=== PATIENT | male | born 1950 | race Caucasian/White ===

== ENCOUNTER 2021-12-20 07:18 | Day surgery (SDC) | payer MEDICARE, BC, SELFPAY ==
[2021-12-20] VITALS (18 sets, daily range): BP systolic 104–156; BP diastolic 47–81; PULSE 60–81; RESP 12–18; TEMP 36.1–36.6; O2SAT 91–98; BMI 27.2
[2021-12-20] MEDS: SODIUM CHLORIDE 0.9 % (FLUSH) 10 ML SYRINGE IVF (07:45)
[2021-12-20] MEDS: LACTATED RINGERS 1000 ML 1,000 ML 100 ML IV ×2 (07:45→11:20)
[2021-12-20] MEDS: fentaNYL 100 MCG/2 ML inj IVP (08:25)
[2021-12-20] MEDS: MIDAZOLAM HCL 1 MG/ML inj IVP (08:25)
[2021-12-20] MEDS: CEFAZOLIN 2 GM INJ IVP (09:22)
--- NOTE | 2021-12-20 09:38 | SUR.PREOP ---
TIME?OUT:?0824 PT/CAITIE RN/ALAN ADAMS?VERIFICATION?OF?SURGICAL?SITE,?PROCEDURE,?AND?CONSENT OBTAINED?PRIOR?TO?INVASIVE?PROCEDURE.
--- NOTE | 2021-12-20 10:08 | W.PM.NB ---
Nerve Block Nerve Block Type of block requested by surgeon for post-operative analgesia: interscalene Side: right Time out performed: Yes Verification of patient name: Yes Verification of date of : Yes Site marking: site marked Name of person performing procedure: Nick Continuous monitoring 1st: Was continuous monitoring of O2 sat, B/P, court recording monitor, recorded every 15 minutes?: Yes Vital Signs: Last Vital Signs Temp 97.4 F L 12/20/21 08:09 Pulse 60 12/20/21 08:45 Resp 16 12/20/21 08:45 BP 120/74 12/20/21 08:45 Pulse Ox 97 12/20/21 08:45 Procedure Ultrasound guided. Images saved: Yes Versed IV (mg): 2 Fentanyl IV (mg): 0.1 Medications given in 5ml increments after negative aspiration: Ropivicaine %: 0.5 mL: 20 Needle gauge: 22 Decadron (mg): 10 Precedex (mg): 0.02 Patient tolerated procedure well: Yes
[2021-12-20] MEDS: SODIUM CHLORIDE IRRIG SOLUTION 3,000 ML, EPINEPHrine 1 MG IRRIGATION (10:29)
--- NOTE | 2021-12-20 12:40 | W.ANESCHARGE ---
Anesthesia Charges Start Date/Time Anesthesia Start Date: 12/20/21 Anesthesia Start Time: 08:58 Stop Date/Time Anesthesia Stop Date: 12/20/21 Anesthesia Stop Time: 12:34 Summary Emergency: No
--- NOTE | 2021-12-20 12:49 | PM.ORPRC ---
Procedure Note Procedure: PREOPERATIVE DIAGNOSES: 1. Right shoulder rotator cuff tear- full-thickness supraspinatus, infraspinatus, and subscapularis 2. Right shoulder long of the biceps partial-thickness tearing, high-grade 3. Right shoulder AC degenerative joint disease, moderate -severe 4. Right shoulder degenerative labral fraying and tearing 5. Right shoulder humeral head chondromalacia 6. Right shoulder adhesions supraspinatus and infraspinatus as well as subscapularis of rotator cuff tendons that tore and were retracted 7 Right shoulder subacromial impingement syndrome. POSTOPERATIVE DIAGNOSES: 1. Right shoulder rotator cuff tear- full-thickness supraspinatus, infraspinatus, and subscapularis 2. Right shoulder long of the biceps partial-thickness tearing, high-grade 3. Right shoulder AC degenerative joint disease, moderate -severe 4. Right shoulder degenerative labral fraying and tearing 5. Right shoulder humeral head chondromalacia 6. Right shoulder adhesions supraspinatus and infraspinatus as well as subscapularis of rotator cuff tendons that tore and were retracted 7 Right shoulder subacromial impingement syndrome. NAME OF OPERATION: 1. Right shoulder arthroscopic rotator cuff repair -full-thickness supraspinatus, infraspinatus, and subscapularis ( massive tear ) 2. Right shoulder arthroscopic distal clavicle excision 3. Right shoulder arthroscopic extensive glenohumeral debridement 4. Right shoulder arthroscopic long head of biceps tenotomy 5. Right shoulder arthroscopic lysis of adhesions -distinctly separate from the extensive glenohumeral debridement as the lysis of adhesions were in the subacromial space especially 6. Right shoulder arthroscopic bursectomy, subacromial decompression/partial acromioplasty. SURGEON: Santiago Nuñez MD PARKING ASSISTANT: Filipe SOTO. Of note, a skilled behavioral health assistant was critical for this case to aide in patient positioning, suture manipulation, arm positioning, instrument positioning, and closure. ANESTHESIA: General plus preoperative supraclavicular block. EBL: 50 mL IMPLANTS: Arthrex 4.75 mm BioComposite SwiveLock suture anchor (x3); 5.5 mm BioComposite corkscrew suture anchor ( x1); 5.5 mm BioComposite SwiveLock suture anchor ( x1) COMPLICATIONS: None evident INDICATIONS: The patient is a pleasant, 71-year-old male who has experienced right shoulder pain that has been increasing in recent time. Physical exam and imaging were consistent with a rotator cuff tear. Given their findings, as well as the weakness and pain, and inadequate response to nonoperative management, recommendation was made for surgery. FINDINGS: Exam under anesthesia revealed stable shoulder with excellent range of motion. The diagnostic arthroscopy revealed grade 2 chondromalacia humeral head with some loose chondral flaps. The Subscapularis tendon was torn full-thickness with significant retraction. Was also adhesed to the anterior capsular and rotator interval tissue. It was torn from its upper 1/2 with significant retraction. The long head of the biceps tendon was Torn in high-grade partial-thickness manner and dislocated out of the bicipital groove. The superior rotator cuff tendon was found to be torn full-thickness through the entire supraspinatus as well as majority of the anterior infraspinatus. The tissue was retracted back to the glenoid and had substantial adhesions particularly in the subacromial space area tracking back towards the scapular spine. The labrum was degeneratively frayed in the anterior and superior aspects. No loose bodies were identified within the pouch or subscapularis recess. PROCEDURE: Following a thorough discussion of risks, benefits, and alternatives, consent was obtained and the right shoulder was marked. The patient was brought to the operating room and placed supine on the operating table. Induction of anesthesia was completed after preoperative supraclavicular block was administered in preop holding. Appropriate time out was performed identifying proper patient, site, and procedure. 2 g IV Ancef was administered within 1 hour of incision preoperatively. The right upper extremity was prepped and draped in the appropriate sterile fashion using ChloraPrep prep. This was after the patient was positioned in the beach chair with their head in neutral alignment and all bony prominences well padded. The shoulder was insufflated with 20mL of normal saline via an 18g spinal needle from a posterior approach. An 11 blade skin incision allowed a blunt trochar to be inserted and diagnostic arthroscopy to be performed with the findings as noted above. An anterior portal was established with an outside in technique. This allowed the probe to be inserted and confirm the diagnostic arthroscopic findings. The shaver was then inserted and allowed debridement of The anterior and superior labrum. Additionally, debridement of the humeral head loose chondral flaps was performed with the arthroscopic shaver. Long head of the biceps tendon stump was also debrided with the shaver following biceps tenotomy which was done with a combination arthroscopic scissors and the shaver. Finally, the rotator cuff was also debrided with a shaver right on the deep surface of lesser tuberosity and greater tuberosity. Additionally, the long of the biceps was released from the bicipital tuberosity for arthroscopic tenotomy. The stump was debrided with a shaver. Following this, the upper border subscapularis was repaired after debriding the lesser tuberosity with the shaver and Franklin cautery. Subscapularis was captured in horizontal mattress fashion with a fiber tape suture. The tails were brought to a single anchor in the lesser tuberosity with excellent reapproximation of the subscap tendon and good excursion/tension. Thereafter, the subacromial space was entered. Here, a complete bursectomy and partial acromioplasty/subacromial decompression was performed with a combination of radiofrequency ablator, the shaver, and a 5.5 mm bur. Additionally, distal clavicle excision was performed with the bur. 8 mm of distal clavicle was resected based on the with of our bur. Further inspection of the supraspinatus and infraspinatus rotator cuff was performed. This identified the tear as noted above. The margins of the tear were debrided, and the greater tuberosity was debrided with a combination of the apollo cautery, shaver, and bur on reverse setting. After gentle decortication, significant lysis of adhesions was required to help mobilize the tissue. This was required on the deep surface of the glenohumeral joint but even more so in the subacromial space distinctly separate from the glenohumeral debridement noted above. This was done with a combination of Franklin cautery, arthroscopic shaver, and liberator elevator. This helped us mobilize the supraspinatus and infraspinatus. of note, greater than 1 hour was findings with Jamey of adhesions mobilizing the rotator cuff tissue to help with excursion and eventual repair. Again this was distinctly separate from the debridement noted above. If this does not fall Under its own surgical billing category, it is absolutely worthy of an modifier 22 for added difficulty code due to the extensive lysis required. It was also identified that majority the tendon had fallen posteriorly as well as medially. There was a marginal convergence that was necessary with the split directed towards the posterior medial aspect of the tendon junction of supra and infra. After identifying this, 5 separate margin convergence sutures were placed to help reapproximate this tissue. A posterior medial anchor was placed and the sutures passed with a scorpion. These were done with the SwiveLock suture anchor in the tails were eventually brought to lateral row anchors for security. Then for the anterior medial row anchor, a corkscrew was utilized. After performing the 5 marginal convergence sutures, these sutures were also passed to help not only with marginal convergence but also with reapproximation of to the anterior medial portion of the tuberosity. Finally, another generally marginal convergence suture was utilized with the fiber link in a luggage tag fashion. These anterior medial row anchor stitch tails were then brought to a lateral row anchor along with 1 of the tapes from the posterior medial anchor. This allowed excellent footprint compression against the greater tuberosity. 95+% of the humeral head was covered with the rotator cuff repair. The far anterior aspect still had a small hole that was not repairable due to tension. Prior to anchor explosives truck driver removal, the eyelet sutures were tugged on for each anchor and found that the anchor had excellent stability within the bone. The shoulder was placed through range of motion and found to be stable. The rotator cuff was re-probed and found to be stable. Instruments were removed. Excess fluid was drained, closure performed with 4-0 Monocryl and Steri-Strips. Dressings were applied. Sling was applied. The patient was awoken from anesthesia and transferred to the PACU in stable condition. A skilled behavioral health assistant was critical for this case to aid in patient positioning, limb positioning, skill to manipulate arthroscopic instruments and camera, suture management, patient safety, and closure. PLAN: 1. Elbow, forearm, wrist and digit range of motion as tolerated. 2. Encouraged ice. 3. Percocet for pain as needed. 4. Sling at all times except for ROM and showering. 5. Follow up with PA visit in 1-2 weeks for wound check. Initiate physical therapy following that visit for passive range of motion. Initiate active assisted range of motion at 4-6 weeks. He had a massive tear and therefore active range of motion should not be started until after 8-10 weeks postop. Strengthening not until and closer to 12-14 weeks postop. May do pendulums now.
--- NOTE | 2021-12-20 14:07 | W.ANESCHARGE ---
Anesthesia Charges Start Date/Time Anesthesia Start Date: 12/20/21 Anesthesia Start Time: 08:58 Stop Date/Time Anesthesia Stop Date: 12/20/21 Anesthesia Stop Time: 12:34 Summary Emergency: No
[2021-12-20] MEDS: OxyCODONE/APAP 5-325 TABLET 1 TAB PO (15:01)
== END 2021-12-20 15:39 | disposition home or self-care (01) ==
PROVIDERS: PCP Family Medicine; Visit Provider Orthopaedic Surgery Sports Medicine
PROC: (CPT 29805; principal; 2021-12-20 08:30)
DX: M75.121 Complete rotator cuff tear or rupture of right shoulder, not specified as traumatic (principal); S46.111A Strain of muscle, fascia and tendon of long head of biceps, right arm, initial encounter; M19.011 Primary osteoarthritis, right shoulder; M94.211 Chondromalacia, right shoulder; M75.41 Impingement syndrome of right shoulder; M75.01 Adhesive capsulitis of right shoulder; S43.431A Superior glenoid labrum lesion of right shoulder, initial encounter
CPT/HCPCS: 29827; 29828; 29826; 29824; 29823; 29825; 01630; 64415; 76942; A9270; C1713; J0171; J0330; J0690; J1100; J2250; J2370; J2405; J2704; J2795; J3010; J7120

== ENCOUNTER 2021-12-21 19:58 | Emergency (ER) | payer MEDICARE, BC, SELFPAY ==
[2021-12-21 20:09] VITALS: BP 190/89; PULSE 79; RESP 16; TEMP 36.6; O2SAT 98; BMI 26.1
--- NOTE | 2021-12-21 20:40 | CRLHL7_ITS ---
For Patients: As a result of the Century Cures Act, medical imaging exams and procedure reports are released immediately into your electronic medical record. You may view this report before your referring provider. If you have questions, please contact your health care provider. Indication: Stomach pain. Technique: AP portable erect chest. Comparison: June 17, 2015. Findings: Heart is normal in size. The lungs are clear. No infiltrate, pleural effusion, or pneumothorax is identified. Impression: No acute cardiopulmonary process Dictated by Jessica Reveles MD @ 12/21/2021 9:25:04 PM (Electronically Signed)
--- NOTE | 2021-12-21 20:56 | ED_ITS ---
HPI - General Adult General Date Seen: 12/21/21 Chief complaint: Unspecified Complaint, Adult Stated complaint: STOMACH PAIN,POST-SURGERY Time Seen by Provider: 12/21/21 20:22 History of Present Illness HPI narrative: Patient is a 71-year-old male who had rotator cuff surgery yesterday. He says surgery went fine, the shoulder is feeling good. He has been taking Percocet since surgery. Says that he was told the surgery took about an hour or longer than planned, and he has had some throat irritation from the ET tube, that seems to cause some coughing. He has had some diffuse sharp pain in his chest when he coughs, though he has not had shortness of breath. The only time he has chest pain is when he coughs. is coughing up some sputum. He also says he has had some diffuse abdominal pain any feels that his abdomen is distended. He has not had any nausea or vomiting, he is eating well. He has not had a bowel movement since surgery. He stepped on a scale today and he was up 3 lb from before the surgery, and this concerned him. He says he felt like he had to have a bowel movement earlier today so he sat down to try, but he developed abdominal pain when he did so he aborted that attempt. He says he called the [facility], but he did not seem terribly concerned, simply told him that if he had more problems he should come to the emergency department. He presents here with concerns about his abdominal pain and chest pain. Related Data Home Medications Medication Instructions Recorded Confirmed aspirin 81 mg tablet,delayed 81 mg PO DAILY 12/19/21 12/20/21 release atorvastatin 40 mg tablet 40 mg PO HS 12/19/21 12/20/21 metformin 500 mg tablet,extended 2,000 mg PO DAILY 12/19/21 12/20/21 release 24 hr Previous Rx's Medication Instructions Recorded oxycodone-acetaminophen 5 mg-325 1 tab PO Q4-8H PRN #25 tab 12/20/21 mg tablet (Percocet) Allergies Allergy/AdvReac Type Severity Reaction Status Date / Time No Known Allergies Allergy Verified 12/20/21 08:15 Review of Systems Status of ROS: Reports: 10 or more systems reviewed and unremarkable except as noted in History and below [facility] Medical History Accidental hypothermia Accidental overdose CAD (coronary artery disease) Depression Erectile dysfunction Excessive daytime sleepiness History of gout Hyperlipidemia Obstructive sleep apnea syndrome Positive colorectal cancer screening using DNA-based stool test Shoulder injury Tobacco dependence syndrome Type 2 diabetes mellitus Surgical History Status post angioplasty with stent Social History Smoking Status: Current every day smoker What tobacco products do you use: cigarettes Smoking packs per day: 1 Smoking cigarettes per day: 20.0 Years smoked: 9 Smoking pack-years: 9.00 How often do you have a drink containing alcohol: 2-3 times a week Alcohol type: beer How many standard drinks containing alcohol do you have on a typical day: 1 or 2 How often do you have six or more drinks on one occasion: Never AUDIT-C Alcohol total score: 3 Non-prescribed substance use: denies use Caffeine: Yes Exam Narrative: Exam Narrative: Vital signs as noted above. In general, an alert, well-appearing patient. Head: Normocephalic, atraumatic. Eyes: Pupils are equal reactive. Extraocular movements are full. Conjunctivae are normal. ENT: Mucous membranes are moist. Throat is normal. Neck: Supple without lymphadenopathy. No stridor. Heart: Regular rate and rhythm. No murmur or rub. Lungs: Clear bilaterally. No increased work of breathing, crackles or wheezes. Abdomen: Soft and nontender, mildly distended, bowel sounds present. No rebound guarding or rigidity. Extremities: Right shoulder is in an immobilizer. Left radial pulse intact. No lower extremity edema or calf tenderness. Neurologic: Patient is alert and oriented to person and place. Speech is fluent. Face is symmetric. Moves all extremities equally. Affect: Normal. Skin: Warm and dry. Well perfused. Const: Vital Signs, click to edit/add: Vital Signs - 24 hr 12/21/21 20:09 12/21/21 21:23 Temperature 97.8 F 97.8 F Pulse Rate 79 Pulse Rate [Left P ulse Oximeter] 79 Respiratory Rate 16 16 Blood Pressure 190/89 H Blood Pressure [Le ft Upper Arm] 190/89 H Pulse Oximetry 98 Documenting provider has reviewed patient's vital signs: yes Course Course Hospital Course: Overall, patient is well-appearing. He is breathing without difficulty. His abdominal exam is benign. I do think his 3 lb of weight gain since surgery is likely related to intraoperative fluids and the fact that he has not had a bowel movement since before his surgery. He is taking narcotic pain medications, he is taking senna which he says has worked for him in the past when he is taking narcotics, but he has not had a bowel movement despite feeling that he needs to. I do think it would be reasonable to work on getting him to have a bowel movement prior to embarking on a large workup for abdominal pain. He is comfortable with this as well. With regard to his chest pain and cough, I did do a chest x-ray here. By my review, chest x-ray shows an elevated right hemidiaphragm which is new compared to 2015, otherwise negative. Final radiology report is read as negative. Patient is very eager to go home, in fact was very frustrated that we did not discharge him medially after his chest x- ray. I have reviewed results with him, encouraged him to try an enema at home, use MiraLax, and then return if he is not having improvement with his symptoms. Follow up with Orthopedics as planned for his rotator cuff surgery. If he has any new symptoms such as shortness of breath, fever, vomiting, etcetera return at any time to the emergency department. Given that his chest pain is present only when he coughs, I do not think this is cardiac and did not pursue any kind of chest pain evaluation. Vital Signs Vital signs: Initial Vital Signs Temperature 97.8 F 12/21/21 20:09 Temperature Source Temporal Artery Scan 12/21/21 20:09 Pulse Rate 79 12/21/21 20:09 Pulse Rhythm 12/21/21 20:09 Pulse Strength 0+ Absent 12/21/21 20:09 Respiratory Rate 16 12/21/21 20:09 Blood Pressure 190/89 H 12/21/21 20:09 Blood Pressure Mean 122 12/21/21 20:09 Blood Pressure Position Sitting 12/21/21 20:09 Pulse Oximetry 98 12/21/21 20:09 Oxygen Delivery Method 12/21/21 20:09 Vital Signs Temperature 97.8 F 12/21/21 20:09 Pulse Rate 79 06/30/22 20:09 Respiratory Rate 16 12/21/21 20:09 Blood Pressure 190/89 H 12/21/21 20:09 Pulse Oximetry 98 12/21/21 20:09 Temperature 97.8 F 12/21/21 21:23 Pulse Rate 79 12/21/21 21:23 Respiratory Rate 16 12/21/21 21:23 Blood Pressure 190/89 H 12/21/21 21:23 Pulse Oximetry 98 12/21/21 20:09 Discharge Plan Discharge Clinical Impression: Cough, Abdominal pain Patient Disposition: Home, Self-Care Condition: Stable Instructions: Abdominal Pain (ED) Additional Instructions: Try Fleet's enema as discussed. Add MiraLax to help with constipation. If you develop new symptoms such as vomiting, fever, shortness of breath, persistent chest pain, return for re-evaluation. Otherwise follow up with Orthopedics as planned. Prescriptions: No Action atorvastatin 40 mg tablet 40 mg PO HS 0RF aspirin 81 mg tablet,delayed release (DR/EC) 81 mg PO DAILY 0RF metformin 500 mg tablet extended release 24 hr 2,000 mg PO DAILY 0RF oxycodone-acetaminophen [Percocet] 5-325 mg tablet 1 tab PO Q4-8H PRN (Reason: pain) Qty: 25 0RF Follow Up/Referrals: Nilson Sorto MD [Primary Care Provider] - Stand Alone Forms: [employer] Info Instructions
[2021-12-21 21:23] VITALS: BP 190/89; PULSE 79; RESP 16; TEMP 36.6
== END 2021-12-21 21:42 | disposition home or self-care (01) ==
PROVIDERS: Emergency Provider Emergency Medicine; PCP Family Medicine
DX: R05.9 Cough, unspecified (principal); R10.9 Unspecified abdominal pain; Z98.890 Other specified postprocedural states
CPT/HCPCS: 71045; 99283; 99284

== ENCOUNTER 2022-05-25 08:30 | Outpatient (RCR) | payer MEDICARE, BC, SELFPAY ==
--- NOTE | 2022-01-03 15:13 | PT.OPEX ---
PT Center Outpatient Eval PT [facility] Outpatient Eval Start: 01/03/22 13:28 Freq: Status: Active Protocol: Document 01/03/22 13:29 ACW (Rec: 01/03/22 13:30 ACW [id number]) E-Signed By Rebecca Roldan, PT, ATC Physical Therapy Outpatient Evaluation Insurance Information Insurance Name [employer] Medical Diagnosis s/p right RC repair Treating Diagnosis decreased right shoulder ROM and strength Referring MD Nuñez Subjective Subjective pt came in not wearing his sling today - which is 1 wk status post surgery. The doctor wanted him in his sling for 6 wks. pt is doing a lot with his arm throughout the day Pain Comments 0-08/31 Date of Last Physician Visit 12/28/21 Date of Next Physician Visit 12/20/21 Current Work Status Precision Inspector Precautions Treatment Precautions/Contraindications surgeon wants PROM for at least the first 4 wks. AAROM can be started 4-6 wks no AROM until after 8 weeks because the tear was massive strengthening may start at 12- 14 wks Weight Bearing Status Full Weight Bearing Therapy Limitations/Systems Review Not Limited Objective Range of Motion PROM right shoulder : flex= 100, abduction 107 neck ROM is full for flex and ext. sidebending and rotation bilaterally are limited Palpation op sites appear healthy and healing well just generalized thickness in anterior shoulder Posture protracted shoulders, dropped chest Assessment Assessment/Impression pt is a 71 yo male who had arthroscopic surgery to repair 3 of his 4 RC tendons ( supraspinatus, subscapularis and infraspinatus) 1 wk ago. He isn't having much for pain even though he isn't wearing his sling, and hasn't been. 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 He is taking advil once in awhile. He doesn't ice. He isn't sleeping well but hasn't for years due to sleep apnea. The original injury happened July/August of this year, but he wanted to play golf in [place] in October and this summer so he put off surgery as long as he could. pt will benefit from skilled PT for pt education, self care, TE and MT Plan of Care Rehabilitation Potential Fair Physical Therapy Goals 1. pt will be competent and compliant with home ex and icing and not using his right arm 2. in 6 wks pt will have full PROM with 2/10 max right shoulder discomfort 3. in 10 wks pt will have 75% full AROM with 3/10 max pain 4. in 14 wks pt will have strengthening program 5. in 16 wks pt will be able to scratch the top of his head with his right hand, put a coffee cup up into the microwave, lift 5# out in front of himself with 3/10 max shoulder pain Coordination/Communication With Referral Source Treatment Plan/Direct Interventions Manual Therapy,Self-Care/Home Management,Therapeutic Exercises Frequency/Duration 1 time every 1-2 wks as needed to follow protocol and achieve goals Patient Will Be Discharged From Therapy Independently Progressing Evaluation Billing Complexity High Certification Information Initial Certification Date 01/03/22
== END 2022-05-28 12:11 | disposition home or self-care (01) ==
PROVIDERS: PCP Family Medicine; Visit Provider Physician Assistant Surgical
DX: M25.511 Pain in right shoulder (principal); Z51.89 Encounter for other specified aftercare
CPT/HCPCS: 97110; 97140; 97163; 97535

== ENCOUNTER 2022-05-28 11:23 | Emergency (ER) | payer MEDICARE, BC, SELFPAY ==
[2022-05-28 11:47] VITALS: BP 187/93; PULSE 70; RESP 18; TEMP 36.7; O2SAT 97; BMI 24.4
== END 2022-05-28 15:45 | disposition left against medical advice (07) ==
PROVIDERS: Emergency Provider Emergency Medicine Emergency Medical Services; PCP Family Medicine
DX: Z53.21 Procedure and treatment not carried out due to patient leaving prior to being seen by health care provider (principal)

== ENCOUNTER 2022-07-06 07:30 | Outpatient (CLI) | payer MEDICARE, BC, SELFPAY ==
[2022-07-06 10:19] LABS: Albumin* 4.5 g/dL (3.3-5.0); Chloride* 106 mmol/L (96-114)
[2022-07-06 10:20] LABS: Potassium* 4.8 mmol/L (3.6-5.1); Sodium* 140 mmol/L (135-149)
[2022-07-06 10:22] LABS: Aspartate Amino Transferase* 26 U/L (12-35); Bilirubin Total* 0.7 mg/dL (0.1-1.5); Blood Urea Nitrogen* 16 mg/dL (7-30); Carbon Dioxide* 25 mmol/L (20-32); Cholesterol* 152 mg/dL (90-199); Creatinine* 0.8 mg/dL (0.5-1.5); Estimated Glomerular Filt Rate 96 ml/min; Total Protein* 7.2 g/dL (6.0-8.3)
[2022-07-06 10:23] LABS: Alanine Aminotransferase* 24 U/L (4-50); Alkaline Phosphatase* 104 U/L (40-150); Calcium* 9.6 mg/dL (8.4-10.6); Glucose* 137 mg/dL (60-115); HDL Cholesterol* 54 mg/dL (>=40); LDL Cholesterol Calculated 78 mg/dL (<100); Triglycerides* 99 mg/dL (40-149)
[2022-07-06 10:35] LABS: Creatinine Urine 47.5 mg/dL
[2022-07-06 10:40] LABS: Microalbumin Creatinine Ratio 40 mg/g (0-30); Microalbumin Urine 2 mg/dL
[2022-07-06 10:53] LABS: PSA Screen* 0.98 ng/mL (0.10-4.00)
== END 2022-07-06 07:31 | disposition home or self-care (01) ==
PROVIDERS: PCP Family Medicine; Visit Provider Family Medicine
DX: Z00.00 Encounter for general adult medical examination without abnormal findings (principal); E11.9 Type 2 diabetes mellitus without complications; E78.5 Hyperlipidemia, unspecified; B37.2 Candidiasis of skin and nail; Z12.5 Encounter for screening for malignant neoplasm of prostate
CPT/HCPCS: 80053; 80061; 82043; 82570; 84153

== ENCOUNTER 2022-07-13 07:08 | Outpatient (CLI) | payer MEDICARE, BC, SELFPAY ==
--- NOTE | 2022-07-13 07:15 | CRLHL7_ITS ---
For Patients: As a result of the Century Cures Act, medical imaging exams and procedure reports are released immediately into your electronic medical record. You may view this report before your referring provider. If you have questions, please contact your health care provider. Examination: US abdominal aorta Indication: Abdominal aortic aneurysm screening. Technique: Mishra scale and color Doppler images of the aorta and common iliac arteries are obtained. Comparison: None Findings: Proximal aorta: 3.0 x 3.1 cm Mid aorta: 2.1 x 2.5 cm Distal aorta: 2.3 x 2.5 cm Right common iliac artery: 1.1 x 1.5 cm Left common iliac artery: 1.2 x 1.5 cm Recommended imaging interval for ectatic aorta: 2.5-2.9 cm: 5 years 3.0-3.4 cm: 3 years 3.5-3.9 cm: 2 years 4.0-4.4 cm: 1 year 4.5-4.9 cm: 6 months Iliac artery aneurysm: Defined as 1.5 times normal diameter or greater than 2.5 cm. <3.0 cm rarely rupture and expands slowly 3.0-3.5 cm: Follow-up cross-sectional imaging in 6 months. If stable, annual follow-up. <3.5 cm need treatment or even closer follow-up. 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 Follow-up 3 years recommended. Dictated by Barrett Ferrer MD @ 07/13/2022 9:23:46 AM (Electronically Signed)
== END 2022-07-13 07:09 | disposition home or self-care (01) ==
PROVIDERS: PCP Family Medicine; Visit Provider Family Medicine
DX: Z13.6 Encounter for screening for cardiovascular disorders (principal); I77.89 Other specified disorders of arteries and arterioles
CPT/HCPCS: 76706

== ENCOUNTER 2022-09-27 07:11 | Emergency (ER) | payer MEDICARE, BC, SELFPAY ==
[2022-09-27 07:27] VITALS: BP 152/90; PULSE 67; RESP 16; TEMP 36.3; O2SAT 96; BMI 25.1
--- NOTE | 2022-09-27 08:01 | ED.NAVMDI ---
HPI - Nausea/Vomiting/Diarrhea General Chief complaint: Nausea/Vomiting Stated complaint: Throwing up and stomach issues Time Seen by Provider: 09/27/22 07:53 History of Present Illness HPI Narrative: Pt is a 71 year old gentleman who presents with nausea, vomiting and diarrhea. Pt has been sick with these symptoms off and on for the past week. No blood in his stool or vomiting. Pt has no significant abd pain. Pt states that he just returned from [place]. No fever or chills. No chest pain or shortness of breath. Pt has not felt like he has been nearing syncope. Pt unable to control symptoms at home. No sick contacts. No rash or other related symptoms. Related Data Home Medications Medication Instructions Recorded Confirmed aspirin 81 mg tablet,delayed 81 mg PO DAILY 12/19/21 08/07/22 release Previous Rx's Medication Instructions Recorded atorvastatin 40 mg tablet 40 mg PO HS #90 tabs 07/11/22 metformin 500 mg tablet,extended 2,000 mg PO DAILY #360 tabs 07/11/22 release 24 hr nystatin 100,000 unit/gram topical 1 applic topical TID #30 grams 07/11/22 cream rosuvastatin 20 mg tablet 20 mg PO QDAY #90 tabs 07/26/22 Allergies Allergy/AdvReac Type Severity Reaction Status Date / Time No Known Allergies Allergy Verified 09/27/22 07:27 Review of Systems Status of ROS: Reports: 10 or more systems reviewed and unremarkable except as noted in History and below [facility] Medical History Accidental hypothermia ?T68.XXXA - Hypothermia, initial encounter (ICD-10) Accidental overdose ?T50.901A - Poisoning by unspecified drugs, medicaments and biological substances, accidental (unintentional), initial encounter (ICD-10) CAD (coronary artery disease) ?I25.10 - Atherosclerotic heart disease of [place] coronary artery without angina pectoris (ICD-10) Cervical disc disease ?M50.90 - Cervical disc disorder, unspecified, unspecified cervical region (ICD-10) Depression ?F32.A - Depression, unspecified (ICD-10) Erectile dysfunction ?N52.9 - Male erectile dysfunction, unspecified (ICD-10) Excessive daytime sleepiness ?G47.19 - Other hypersomnia (ICD-10) History of gout ?Z87.39 - Personal history of other diseases of the musculoskeletal system and connective tissue (ICD-10) Hyperlipidemia ?E78.5 - Hyperlipidemia, unspecified (ICD-10) Obstructive sleep apnea syndrome ?G47.33 - Obstructive sleep apnea (adult) (pediatric) (ICD-10) Positive colorectal cancer screening using DNA-based stool test ?R19.5 - Other fecal abnormalities (ICD-10) Shoulder injury ?S49.90XA - Unspecified injury of shoulder and upper arm, unspecified arm, initial encounter (ICD-10) Tobacco dependence syndrome ?F17.200 - Nicotine dependence, unspecified, uncomplicated (ICD-10) Type 2 diabetes mellitus ?E11.9 - Type 2 diabetes mellitus without complications (ICD-10) Surgical History Status post angioplasty with stent ?Z95.820 - Peripheral vascular angioplasty status with implants and grafts (ICD-10) Status post arthroscopy of right shoulder (12/20/21) ?Z98.890 - Other specified postprocedural states (ICD-10) Family History Father Diabetes Social History Smoking Status: Never smoker How often do you have a drink containing alcohol: 2-3 times a week Alcohol type: beer How many standard drinks containing alcohol do you have on a typical day: 1 or 2 How often do you have six or more drinks on one occasion: Never AUDIT-C Alcohol total score: 3 Non-prescribed substance use: denies use Caffeine: Yes Little interest or pleasure in doing things: not at all Feeling down, depressed, or hopeless: not at all Exam Narrative: Exam Narrative: EXAM GENERAL: Patient appears comfortable and well. EYES: No scleral icterus. LYMPH: No supraclavicular or cervical lymphadenopathy. SKIN: Visible skin seen during exam normal or with benign process only. EXT: No dependent lower extremity pedal edema. HEART: Regular rate and rhythm with no murmurs, rubs, or gallops. LUNGS: Clear to auscultation bilaterally with no crackles or wheezes. ABD: Soft, non tender, non distended. PSYCH: Good eye contact, speech is not pressured. Const: Vital Signs, click to edit/add: Vital Signs - 24 hr 09/27/22 07:27 09/27/22 08:25 Temperature 97.4 F L Pulse Rate 64 Pulse Rate [Pulse Oximeter] 67 Respiratory Rate 16 Blood Pressure [Ri ght Upper Arm] 152/90 H Pulse Oximetry 96 90 Oxygen Delivery Me thod Room Air Course Course Hospital Course: Pt seen and examined. 1 Liter normal saline and 4 mg of IV Zofran given. CBC, CMP, Amylase, Troponin ordered. Reevaluation(s) Reevaluation #1: Pt feeling better after normal saline. Vital Signs Vital signs: Initial Vital Signs Temperature 97.4 F L 09/27/22 07:27 Temperature Source Temporal Artery Scan 09/27/22 07:27 Pulse Rate 67 09/27/22 07:27 Respiratory Rate 16 09/27/22 07:27 Blood Pressure 152/90 H 09/27/22 07:27 Blood Pressure Mean 110 09/27/22 07:27 Blood Pressure Position Sitting 09/27/22 07:27 Pulse Oximetry 96 09/27/22 07:27 Oxygen Delivery Method Room Air 09/27/22 07:27 Vital Signs Temperature 97.4 F L 09/27/22 07:27 Pulse Rate 67 09/27/22 07:27 Respiratory Rate 16 09/27/22 07:27 Blood Pressure 152/90 H 09/27/22 07:27 Pulse Oximetry 96 09/27/22 07:27 Oxygen Delivery Method Room Air 09/27/22 07:27 Temperature 97.4 F L 09/27/22 07:27 Pulse Rate 64 09/27/22 08:25 Respiratory Rate 16 09/27/22 07:27 Blood Pressure 152/90 H 09/27/22 07:27 Pulse Oximetry 90 09/27/22 08:25 Oxygen Delivery Method Room Air 09/27/22 07:27 MDM - Nausea/Vomiting/Diarrhea MDM Narrative Medical decision making narrative: Pt is a 71 year old gentleman who presents with acute gastroenteritis. Pt treated with normal saline and zofran. Feeling better. Labs, physical exam and vital signs are reassuring. Pt will be treated symptomatically with outpt follow up. Differential Diagnosis Differential diagnosis: Likely traveler's diarrhea, food poisoning, gastroenteritis, drug-induced nausea and vomiting and dehydration Lab Data Labs: Lab Results 09/27/22 Range/Units 07:50 WBC 9.73 (4.50-11.00) K/uL RBC 4.70 (4.30-5.90) m/uL Hgb 14.0 (13.5-17.5) gm/dL Hct 40.3 (37.0-53.0) % MCV 86 (80-100) fL MCH 30 (26-34) pg MCHC 35 (32-36) gm/dL RDW Coeff of Sheng 11.9 (11.5-15.5) % Plt Count 186 (140-440) K/uL Neut % (Auto) 80.4 H (42.0-72.0) % Lymph % (Auto) 9.1 L (20-44) % [place] % (Auto) 6.5 (0.0-11.0) % Eos % (Auto) 3.6 (0.0-7.0) % Baso % (Auto) 0.2 (0.0-3.0) % Neut # (Auto) 7.80 H (1.7-7.0) K/uL Lymph # (Auto) 0.90 (0.90-2.90) K/uL [place] # (Auto) 0.60 (0.00-0.90) K/UL Eos # (Auto) 0.35 (0.00-0.50) K/uL Baso # (Auto) 0.02 (0.00-0.30) K/uL Sodium 138 (135-149) mmol/L Potassium 3.7 (3.6-5.1) mmol/L Chloride 108 (96-114) mmol/L Carbon Dioxide 23 (20-32) mmol/L BUN 15 (7-30) mg/dL Creatinine 0.8 (0.5-1.5) mg/dL Estimated Creat Clear 74.25 Estimated GFR 96 ml/min Glucose 171 H (60-115) mg/dL Calcium 8.8 (8.4-10.6) mg/dL Total Bilirubin 0.7 (0.1-1.5) mg/dL AST 27 (12-35) U/L ALT 25 (4-50) U/L Alkaline Phosphatase 107 (40-150) U/L Troponin I < 0.01 L (0.01-0.04) ng/mL Total Protein 7.0 (6.0-8.3) g/dL Albumin 4.1 (3.3-5.0) g/dL Amylase 57 (18-89) U/L Discharge Plan Discharge Clinical Impression: Gastroenteritis Patient Disposition: Home, Self-Care Condition: Stable Instructions: Gastroenteritis (ED) Activity Level: No Restrictions Discharge Diet: Regular Prescriptions: No Action atorvastatin 40 mg tablet 40 mg PO HS Qty: 90 3RF metformin 500 mg tablet extended release 24 hr 2,000 mg PO DAILY Qty: 360 3RF nystatin 100,000 unit/gram cream 1 applic topical TID Qty: 30 1RF Rx Instructions: apply to affected area x 1-2 weeks and continue for 2 days after rash resolves aspirin 81 mg tablet,delayed release (DR/EC) 81 mg PO DAILY rosuvastatin 20 mg tablet 20 mg PO QDAY Qty: 90 3RF Follow Up/Referrals: Nilson Sorto MD [Primary Care Provider] - Stand Alone Forms: [facility] [employer] Info Instructions
[2022-09-27 08:10] LABS: Basophils Absolute Auto 0.02 K/uL (0.00-0.30); Basophils Percent Auto 0.2 % (0.0-3.0); Eosinophils Absolute Auto 0.35 K/uL (0.00-0.50); Eosinophils Percent Auto 3.6 % (0.0-7.0); Hematocrit 40.3 % (37.0-53.0); Immature Granulocytes Abs Auto 0.02 K/uL (0.00-0.30); Immature Granulocytes Pct Auto 0.2 %; Lymphocytes Percent Auto 9.1 % (20-44); Mean Corpuscular HGB Conc 35 gm/dL (32-36); Mean Corpuscular Hemoglobin 30 pg (26-34); Mean Corpuscular Volume 86 fL (80-100); Monocytes Percent Auto 6.5 % (0.0-11.0); Neutrophils Percent Auto 80.4 % (42.0-72.0); Platelet Count* 186 K/uL (140-440); RDW Coefficient of Variation % 11.9 % (11.5-15.5); White Blood Count* 9.73 K/uL (4.50-11.00)
[2022-09-27 08:15] VITALS: BP 142/79; PULSE 60; RESP 18; O2SAT 97
[2022-09-27 08:15] LABS: Slide Review Reflex No
[2022-09-27] MEDS: ONDANSETRON 2 MG/ML inj 4 MG IVP (08:19)
[2022-09-27] MEDS: 0.9 % SODIUM CHLORIDE 1000 ml 1,000 ML IV (08:19)
[2022-09-27 08:24] LABS: Albumin* 4.1 g/dL (3.3-5.0); Chloride* 108 mmol/L (96-114); Sodium* 138 mmol/L (135-149)
[2022-09-27 08:25] VITALS: PULSE 64; O2SAT 90
[2022-09-27 08:25] LABS: Potassium* 3.7 mmol/L (3.6-5.1)
[2022-09-27 08:27] LABS: Alkaline Phosphatase* 107 U/L (40-150); Amylase* 57 U/L (18-89); Aspartate Amino Transferase* 27 U/L (12-35); Bilirubin Total* 0.7 mg/dL (0.1-1.5); Blood Urea Nitrogen* 15 mg/dL (7-30); Carbon Dioxide* 23 mmol/L (20-32); Creatinine* 0.8 mg/dL (0.5-1.5); Est. Creatinine Clearance* 74.25; Estimated Glomerular Filt Rate 96 ml/min; Glucose* 171 mg/dL (60-115)
[2022-09-27 08:28] LABS: Alanine Aminotransferase* 25 U/L (4-50); Calcium* 8.8 mg/dL (8.4-10.6)
[2022-09-27 08:39] LABS: Troponin I* < 0.01 ng/mL (0.01-0.04)
[2022-09-27 09:00] VITALS: BP 157/79; PULSE 64; RESP 18; O2SAT 97
== END 2022-09-27 09:34 | disposition home or self-care (01) ==
LOC: ED 09:26
PROVIDERS: Emergency Provider Internal Medicine; PCP Family Medicine
DX: K52.9 Noninfective gastroenteritis and colitis, unspecified (principal)
CPT/HCPCS: 36415; 80053; 82150; 84484; 85025; 93005; 96374; 99283; 99284; J2405; J7030

== ENCOUNTER 2022-12-11 07:31 | Outpatient (CLI) | payer MEDICARE, BC, SELFPAY | END 2022-12-11 07:32 | disposition home or self-care (01) | LOC: NFLDREF 18:06 | PROVIDERS: PCP Family Medicine; Referring Provider Family Medicine; Visit Provider Family Medicine | DX: E11.9 Type 2 diabetes mellitus without complications (principal) | CPT/HCPCS: 82043; 82570 ==

== ENCOUNTER 2023-05-08 07:39 | Outpatient (CLI) | payer MEDICARE, BC, SELFPAY | END 2023-05-08 07:40 | disposition home or self-care (01) | LOC: NFLDREF 05-10 08:39 | PROVIDERS: PCP Family Medicine; Referring Provider Family Medicine; Visit Provider Family Medicine | DX: Z00.00 Encounter for general adult medical examination without abnormal findings (principal); E11.9 Type 2 diabetes mellitus without complications; E78.5 Hyperlipidemia, unspecified | CPT/HCPCS: 80053; 80061; 82043; 82570 ==

== ENCOUNTER 2023-05-29 07:02 | Outpatient (CLI) | payer MEDICARE, BC, SELFPAY ==
--- NOTE | 2023-05-29 07:15 | CRLHL7_ITS ---
For Patients: As a result of the Century Cures Act, medical imaging exams and procedure reports are released immediately into your electronic medical record. You may view this report before your referring provider. If you have questions, please contact your health care provider. Indication: Right foot drop. Technique: Multiplanar, multisequence MRI of the lumbar spine was performed without intravenous contrast. Comparison: None relevant available. Findings: There are 5 lumbar type vertebral segments identified. The vertebral body heights are maintained without evidence of fracture. There is no discrete T1 hypointense marrow infiltrating process. The conus medullaris terminates at L1, normal. Redundancy to the cauda equina nerve roots above the L4-5 disc level. T12-L1: No spinal canal or neural foraminal stenosis. L1-2: Disc degeneration. Disc bulge with superimposed small right subarticular disc protrusion. Protrusion slightly abuts the descending right L2 nerve. Mild overall spinal canal narrowing. Moderate right neural foraminal narrowing. Left neural foramina is patent. Mild facet arthropathy. L2-3: Moderate disc degeneration, with moderate opposing endplate degenerative edema. Disc bulge with facet hypertrophy resulting in mild spinal canal narrowing. Moderate left and mild right neural foraminal narrowing. Moderate facet arthropathy. L3-4: Disc degeneration, with moderate opposing endplate degenerative edema. Disc bulge with superimposed central disc protrusion resulting in moderate spinal canal narrowing. Moderate to severe left and moderate right neural foraminal narrowing. Moderate facet arthropathy. L4-5: Trace anterolisthesis. Disc bulge with facet hypertrophy and ligamentum flavum thickening results in severe spinal canal stenosis. Moderate neural foraminal stenosis. Severe facet arthropathy. L5-S1: Disc degeneration. No spinal canal narrowing. Moderate severe neural foraminal stenosis secondary to disc bulge and facet hypertrophy. Moderate facet arthropathy. Mild sacroiliac joint osteoarthritis. Impression: 1. At L3-4, moderate spinal canal with moderate to severe left and moderate right neural foraminal stenosis. 2. At L4-5, severe spinal canal with moderate neural foraminal stenosis. 3. At L5-S1, moderately severe neural foraminal stenosis. 4. Mild to moderate spondylosis at the remaining lumbar levels. Dictated by Reuben Funes MD @ 05/30/2023 1:54:47 PM (Electronically Signed)
== END 2023-05-29 07:03 | disposition home or self-care (01) ==
PROVIDERS: PCP Family Medicine; Visit Provider Family Medicine
DX: M21.371 Foot drop, right foot (principal); M48.061 Spinal stenosis, lumbar region without neurogenic claudication; M47.896 Other spondylosis, lumbar region; M54.16 Radiculopathy, lumbar region
CPT/HCPCS: 72148

== ENCOUNTER 2023-10-08 19:24 | Outpatient (CLI) | payer MEDICARE, BC, SELFPAY ==
--- OUTSIDE RECORDS SUMMARY | 2023-10-08 19:26 | XMS_ITS | Continuity of Care Document ---
Author Name Unknown Organization [facility] Address [address] [place] [address] Phone Care Team Providers Care Supply Chain Program Manager Name Role Phone Eligio Lerner MD Unavailable Unavailable Procedures Procedure Date Office/Outpatient Visit,[facility] 2023 Advance Directives Directive Yes / No Effective Date File Name No Information Encounters Encounter Description Practice Location Reason(s) For Visit Diagnoses Date Provider Providers Copied on Encounter Office/Outpat ient Visit,[place] [facility], [address], [place], [place], [id number], [place] tel:[phone] [facility] Spinal stenosis, lumbar region with neurogenic claudication Spondylolist hesis, lumbar region Yann Del Valle. [facility], [address] [place] [address], [facility] [address], [place], [place], [id number], [place]. tel:[phone] Referring Provider: Chalino Davis [facility] ER Physician-D o Not Fax, [place], [address]. tel:[phone] Family History Family Member Type Diagnosis Age At Onset No Information Payers Payer name Insurance type Covered green [place] ID Adore ma([place] [id number] Medicare [facility] [id number] 1 Social History Type Description Quantity Date Captured Comments Sex Male Smoking Status No Information Vital Signs Date / Time: Height Weight BMI Pulse Rate Blood Pressure Temperature Respiratory Rate Body Surface Area Head Circumference Head Circ. Percentile Wt./Dl. Percentile BMI percentile Pulse Ox Inhaled Ox 3:44 PM 70.50 in 83.915 kg (185.00 lbs) 26.1 7 kg/m eter (2) Chief Complaint And Reason For Visit No Information Reason For Referral Reason For Referral No Information History Of Present Illness Encounter Date Complaint History Of Prese nt Illness No Information Functional Status Date Functional Assessmen t No Information Instructions Date Instruction Additional Infor mation No Information Assessments Type Assessment Date No Information Patient Care Teams Name Effective Dates (start - stop) Status Members No Information
--- NOTE | 2023-10-30 11:31 | W.PM.SLEEP ---
Sleep Study Details Details Interpreting Provider: Chantelle Date of Sleep Study: 10/08/23 Sleep Study Details: STUDY TYPE:? Home unattended ? BMI:? Not recorded ORDERING PROVIDER:? Chantelle INDICATION:? Concerns about sleep apnea ? SLEEP SUMMARY:? 271 minutes monitored RESPIRATORY SUMMARY:? AHI 16.6 per CMS guideline, 18.4 per rule 1A guidelines. Mild apnea nonsupine, severe apnea prone low oxygen 77 1% of study oxygen less than 90% Snoring 58.5% PERIODIC LIMB MOVEMENTS OF SLEEP:? Not recorded CARDIAC:? Range 56-88, mean 69.5 IMPRESSION:? Moderate obstructive sleep apnea with prone position dependency RECOMMENDATION: Treatment options include CPAP either in-lab or AutoSet, dental appliance and/or airway expansion surgery.
== END 2023-10-08 19:25 | disposition home or self-care (01) ==
LOC: SLEEP 19:25
PROVIDERS: PCP Family Medicine; Visit Provider Otolaryngology
DX: G47.33 Obstructive sleep apnea (adult) (pediatric) (principal)
CPT/HCPCS: 95806

== ENCOUNTER 2024-05-13 07:50 | Outpatient (CLI) | payer MEDICARE, BC, SELFPAY ==
--- OUTSIDE RECORDS SUMMARY | 2024-05-16 18:57 | XMS_ITS | Clinical Summary ---
Author Organization [facility] Address [place], [place] [address] Care Team Providers Care Rail Bonder Name Role Phone Nilson Sorto MD Primary Care Provider [phone] Allergies No known active allergies Medications Medication Sig Dispensed Refills Start Date End Date Status metformin HCl (METFORMIN ORAL) Take by mouth. Active aspirin (ASPIR-81 ORAL) Take by mouth. Active Encounters Date Type Department Care Team Description 02/15/2024 10:30 AM CDT - 02/15/2024 11:49 AM CDT Emergency [facility] [address] [place] [address] Odell Haider MD Subconjunctival hemorrhage of left eye (Primary Dx); Eye contusion, left, initial encounter Discharge Disposition: Home Self Care 02/15/2024 Travel from Last 3 Months Social History Tobacco Use Types Packs/Day Years Used Date Smoking Tobacco: Never Assessed Sex and Gender Information Value Date Recorded Sex Assigned at Male 02/15/2024 10:36 AM CDT Gender Identity Male 02/15/2024 10:36 AM CDT Sexual Orientation Straight 02/15/2024 10 :36 AM CDT Last Filed Vital Signs Vital Sign Reading Time Taken Comments Blood Pressure 151/88 02/15/2024 11:30 AM CDT Pulse 73 02/15/2024 11:30 AM CDT Temperature 36.7 C (98.1 F) 02/15/2024 10:36 AM CDT Respiratory Rate 18 02/15/2024 10:36 AM CDT Oxygen Saturation 98% 02/15/2024 11:30 AM CDT Inhaled Oxygen Concentration - - Weight 83.9 kg (185 lb) 02/15/2024 10:36 AM CDT Height 180.3 cm (5' 11) 02/15/2024 10:36 AM CDT Body Mass Index 25.8 02/15/2024 10:36 AM CDT Plan of Treatment Not on file Care Teams Rail Bonder Relationship Specialty Start Date End Date Nilson Sorto MD [address] [place] [address] PCP - General Family Practice 02/15/24
--- OUTSIDE RECORDS SUMMARY | 2024-05-16 18:57 | XMS_ITS | Continuity of Care Document ---
Author Organization [facility] Address [address] [place] [address] Phone Care Team Providers Care Fire Engineer Name Role Phone Eligio Lerner MD Unavailable Unavailable Procedures Procedure Date Office/Outpatient Visit,[facility] [place] Advance Directives Directive Yes / No Effective Date File Name No Information Encounters Encounter Description Practice Location Reason(s) For Visit Diagnoses Date Provider Providers Copied on Encounter Office/Outpat ient Visit,[facility], [address], [place], [place], [id number], [place] tel:[phone] [facility] Spinal stenosis, lumbar region with neurogenic claudication Spondylolist hesis, lumbar region Yann Del Valle. [facility], [address] [place] [address], [facility] [address], [place], [place], [id number], [place]. tel:[phone] [facility] Physician-D o Not Fax, [place], [address]. tel:[phone] Family History Family Member Type Diagnosis Age At Onset No Information Payers Payer name Insurance type Covered democrat ID Authorpatricia alyciapatric(s) [place] [id number] Medicare [facility] [id number] 1 Social History Type Description Quantity Date [...]
== END 2024-05-13 07:51 | disposition home or self-care (01) ==
LOC: NFLDREF 05-16 18:56
PROVIDERS: PCP Family Medicine; Referring Provider Family Medicine; Visit Provider Family Medicine
DX: Z00.00 Encounter for general adult medical examination without abnormal findings (principal); E11.9 Type 2 diabetes mellitus without complications; E78.5 Hyperlipidemia, unspecified; I25.10 Atherosclerotic heart disease of native coronary artery without angina pectoris; N52.9 Male erectile dysfunction, unspecified
CPT/HCPCS: 80053; 80061; 82043; 82570

== ENCOUNTER 2024-07-28 06:16 | Outpatient (CLI) | payer MEDICARE, BC, SELFPAY ==
--- NOTE | 2024-07-28 08:04 | P.ANES_ITS ---
Anesthesia Charges Start Date/Time Anesthesia Start Date: 07/28/24 Anesthesia Start Time: 07:27 Stop Date/Time Anesthesia Stop Date: 07/28/24 Anesthesia Stop Time: 08:01 Summary Extremes of Age - Over 70 or under 1: PROPERTY CONSULTANT Coding CPT Codes CPT Codes: ANES LWR INTST SCR COLSC - 90731 ([id number]) P3 - PATIENT W/SEVERE SYS DISEASE, QK - FINANCIAL MARKET DEALER 2-4 CNCRNT ANES PROC, QX - PROPERTY CONSULTANT SVC W/ MD MED DIRECTION Additional Codes: Summary - Extremes of Age - Over 70 or under 1: PROPERTY CONSULTANT ([id number])
--- NOTE | 2024-07-28 08:04 | W.ANESCHARGE ---
Anesthesia Charges Start Date/Time Anesthesia Start Date: 07/28/24 Anesthesia Start Time: 07:27 Stop Date/Time Anesthesia Stop Date: 07/28/24 Anesthesia Stop Time: 08:01 Summary Extremes of Age - Over 70 or under 1: HEAD TURNING MACHINE OPERATOR Coding CPT Codes CPT Codes: ANES LWR INTST SCR COLSC - 72726 ([id number]) P3 - PATIENT W/SEVERE SYS DISEASE, QK - SITE LEASING AGENT 2-4 CNCRNT ANES PROC, QX - HEAD TURNING MACHINE OPERATOR SVC W/ MD MED DIRECTION Additional Codes: Summary - Extremes of Age - Over 70 or under 1: HEAD TURNING MACHINE OPERATOR ([id number])
--- NOTE | 2024-07-28 09:00 | W.ANESCHARGE ---
Anesthesia Charges Start Date/Time Anesthesia Start Date: 07/28/24 Anesthesia Start Time: 07:27 Stop Date/Time Anesthesia Stop Date: 07/28/24 Anesthesia Stop Time: 08:01 Summary Extremes of Age - Over 70 or under 1: MDA Coding CPT Codes CPT Codes: ANES LWR INTST SCR COLSC - 22983 ([id number]) QK - OYSTER HARVESTER 2-4 CNCRNT ANES PROC, QX - TRAFFIC ADMINISTRATOR SVC W/ MD MED DIRECTION, P3 - PATIENT W/SEVERE SYS DISEASE Additional Codes: Summary - Extremes of Age - Over 70 or under 1: MDA ([id number])
== END 2024-07-28 06:17 | disposition home or self-care (01) ==
LOC: OP CLINIC 06:17
PROVIDERS: PCP Family Medicine; Visit Provider Surgery
DX: Z12.11 Encounter for screening for malignant neoplasm of colon (principal); Z86.0100 Personal history of colon polyps, unspecified
CPT/HCPCS: 00812; 45378; 99100; J2704

== ENCOUNTER 2024-10-03 21:19 | Emergency (ER) | payer MEDICARE, BC, SELFPAY ==
[2024-10-03 21:43] VITALS: BP 137/70; PULSE 78; RESP 18; TEMP 36.3; O2SAT 93; BMI 26.5
[2024-10-03 22:34] LABS: PCR FLU A Negative PCR FLU A (Negative); PCR FLU B Negative PCR FLU B (Negative); PCR RSV Negative PCR RSV (Negative); SARS PCR* Negative SARS-CoV-2 (Negative)
--- NOTE | 2024-10-03 22:56 | CRLHL7_ITS ---
For Patients: As a result of the Century Cures Act, medical imaging exams and procedure reports are released immediately into your electronic medical record. You may view this report before your referring provider. If you have questions, please contact your health care provider. INDICATION: WHEEZING, VIRAL SYMPTOMS, POSSIBLE PNEUMONIA. TECHNIQUE: Chest 2 views. COMPARISON: None. FINDINGS: Unremarkable cardiomediastinal contours. No lung consolidation. No sign of pleural effusion. No pneumothorax. No acute osseous or soft tissue findings. IMPRESSION: No lung consolidation. Dictated by Jose D Fonseca MD @ 10/04/2024 12:12:24 AM (Electronically Signed)
--- NOTE | 2024-10-03 23:00 | ED.GENADULT ---
HPI - General Adult General Date Seen: 10/03/24 Chief complaint: Cough Stated complaint: cough Time Seen by Provider: 10/03/24 22:45 Source: patient Mode of arrival: ambulatory Limitations: no limitations History of Present Illness HPI narrative: patient is a 73-year-old male presenting to emergency department for cough that been going for the past couple days. States producing a small amount of clear phlegm. Does not seem to be getting better. Physical he has had symptoms like this several years ago but cannot say for certain. Does currently smoke in states he started about 12 years ago. Has never been diagnosed with any chronic lung disorders. Has not noticed any fevers, chills, chest pain, shortness of breath, headache, lightheadedness, dizziness, weakness, numbness, abdominal pain, diarrhea, constipation. Not aware of any sick contacts. Has not noticed any facial pain. Did start having some rhinorrhea Over the past day. Has been eating and drinking without issues. Has been noticing a mildly sore throat worse when he coughs. No changes to his voice low. Related Data Home Medications ?Medication ?Instructions ?Recorded ?Confirmed aspirin 81 mg tablet,delayed 81 mg PO DAILY 12/19/21 10/03/24 release vit d PO .QD 07/15/23 05/18/24 Previous Rx's ?Medication ?Instructions ?Recorded atorvastatin 40 mg tablet 40 mg PO HS #90 tabs 05/18/24 metformin 500 mg tablet,extended 2,000 mg (4 x 500 mg) PO DAILY 05/18/24 release 24 hr #360 tabs Allergies Allergy/AdvReac Type Severity Reaction Status Date / Time No Known Allergies Allergy Verified 05/18/24 08:20 Review of Systems Status of ROS: Reports: 10 or more systems reviewed and unremarkable except as noted in History and below [facility] Medical History Cervical disc disease (~06/2022) ?M50.90 - Cervical disc disorder, unspecified, unspecified cervical region (ICD-10) Type 2 diabetes mellitus ?E11.9 - Type 2 diabetes mellitus without complications (ICD-10) Tobacco dependence syndrome ?F17.200 - Nicotine dependence, unspecified, uncomplicated (ICD-10) Shoulder injury ?S49.90XA - Unspecified injury of shoulder and upper arm, unspecified arm, initial encounter (ICD-10) Positive colorectal cancer screening using DNA-based stool test ?R19.5 - Other fecal abnormalities (ICD-10) Obstructive sleep apnea syndrome ?G47.33 - Obstructive sleep apnea (adult) (pediatric) (ICD-10) Hyperlipidemia ?E78.5 - Hyperlipidemia, unspecified (ICD-10) History of gout ?Z87.39 - Personal history of other diseases of the musculoskeletal system and connective tissue (ICD-10) Excessive daytime sleepiness ?G47.19 - Other hypersomnia (ICD-10) Erectile dysfunction ?N52.9 - Male erectile dysfunction, unspecified (ICD-10) Depression ?F32.A - Depression, unspecified (ICD-10) CAD (coronary artery disease) ?I25.10 - Atherosclerotic heart disease of [place] coronary artery without angina pectoris (ICD-10) Accidental overdose ?T50.901A - Poisoning by unspecified drugs, medicaments and biological substances, accidental (unintentional), initial encounter (ICD-10) Accidental hypothermia ?T68.XXXA - Hypothermia, initial encounter (ICD-10) Surgical History Status post arthroscopy of right shoulder (12/20/21) ?Z98.890 - Other specified postprocedural states (ICD-10) Status post angioplasty with stent ?Z95.820 - Peripheral vascular angioplasty status with implants and grafts (ICD-10) Family History Father Diabetes Social History What is your current living situation?: I presently have a place to live Problems where you live: no known problems In the past 12 months, utilities in danger of being shut off: no In past 12 months, lack of transportation kept you from medical appts, meetings, work, or getting things needed for daily living: no In the past 12 mos, have been you worried that your food would run out before you had money to buy more?: never true In the past 12 mos, the food you bought just didn't last and you didn't have money to buy more?: never true Smoking Status: Never smoker Do you use any of these nicotine containing products: None Second hand tobacco smoke exposure: No How often do you have a drink containing alcohol: 2-3 times a week Alcohol type: beer How many standard drinks containing alcohol do you have on a typical day: 1 or 2 How often do you have six or more drinks on one occasion: Never AUDIT-C Alcohol total score: 3 Non-prescribed substance use: denies use Caffeine: Yes How often does anyone, including family, friends and others, physically hurt you: never How often does anyone, including family, friends and others, insult or talk down to you: never How often does anyone, including family, friends and others, threaten you with harm: never How often does anyone, including family, friends and others, scream or curse at you: never service: No Exam Narrative: Exam Narrative: Const: Well-nourished, Well-developed, in mild distress Eyes: PERRL, no conjunctival injection, and symmetrical lids HENT: Atraumatic external nose and ears. Moist mucous membranes. uvula midline, no tonsillar exudate or swelling. Neck: Symmetric, trachea midline, No thyromegaly. CVS: RRR, No murmurs or gallops. Peripheral pulses 2+ and equal in all extremities RESP: Unlabored respiratory effort. Mild wheezing throughout GI: Nontender/Nondistended, No rebound or guarding. MSK:Extremities w/o deformity, Normal Active ROM Skin: Warm, Dry. No rashes or lesions. Neuro: Normal Muscle tone, No focal neurological deficits. Psych: Awake, Alert, & Oriented x3. Appropriate mood and affect. Const: Vital Signs, click to edit/add: Vital Signs - 24 hr 10/03/24 21:43 Temperature 97.4 F L Pulse Rate [Pulse Oximeter] 78 Respiratory Rate 18 Blood Pressure [Ri ght Upper Arm] 137/70 Pulse Oximetry 93 Oxygen Delivery Me thod Room Air Course Vital Signs Vital signs: Initial Vital Signs Temperature 97.4 F L 10/03/24 21:43 Temperature Source Temporal Artery Scan 10/03/24 21:43 Pulse Rate 78 10/03/24 21:43 Respiratory Rate 18 10/03/24 21:43 Blood Pressure 137/70 10/03/24 21:43 Blood Pressure Mean 92 10/03/24 21:43 Blood Pressure Position Sitting 10/03/24 21:43 Pulse Oximetry 93 10/03/24 21:43 Oxygen Delivery Method Room Air 10/03/24 21:43 Vital Signs Temperature 97.4 F L 10/03/24 21:43 Pulse Rate 78 10/03/24 21:43 Respiratory Rate 18 10/03/24 21:43 Blood Pressure 137/70 10/03/24 21:43 Pulse Oximetry 93 10/03/24 21:43 Oxygen Delivery Method Room Air 10/03/24 21:43 Temperature 97.4 F L 10/03/24 21:43 Pulse Rate 78 10/03/24 21:43 Respiratory Rate 18 10/03/24 21:43 Blood Pressure 137/70 10/03/24 21:43 Pulse Oximetry 93 10/03/24 21:43 Oxygen Delivery Method Room Air 10/03/24 21:43 Medications Administered Medications: Discontinued Medications Generic Name Dose Route Start Last Admin Trade Name Freq PRN Reason Stop Dose Admin Albuterol 2.5 mg 10/03/24 22:56 10/03/24 23:21 Albuterol Sulfate 2.5 Mg/3 Ml Vial.Neb NEB 10/03/24 22:57 2.5 mg ONCE ONE Administration Medical Decision Making MDM Narrative Medical decision making narrative: Patient is a 73-year-old male presents for a cough. Differential at this time includes bronchitis, pneumonia. No formal diagnosis of COPD but there is some very mild wheezing. Will give him a breathing treatment. X-ray will be ordered for better evaluation. Is not having any chest pain or shortness of breath so pneumothorax, ACS, aortic dissection, aortic aneurysm, PE seem much less likely. viral swabs were also ordered. He is otherwise doing well and I do not believe further lab work is necessary. Vital signs are stable. Viral swabs are negative. chest x-ray reviewed by myself and the radiologist shows no acute concerning abnormalities. Symptoms improved after the albuterol treatment. Do believe he has bronchitis. This is most commonly viral and antibiotics are not necessary at this time. Lab Data Labs: Lab Results 10/03/24 Range/Units 21:49 SARS-CoV-2 (PCR) Negative SARS-CoV-2 (Negative) Influenza Type A (PCR) Negative PCR FLU A (Negative) Influenza Type B (PCR) Negative PCR FLU B (Negative) RSV (PCR) Negative PCR RSV (Negative) Imaging Data Chest x-ray: Attestation: I have reviewed the pertinent imaging results. Radiologist's impression: No lung consolidation. Dictated by Jose D Fonseca MD @ 10/04/2024 12:12:24 AM Discharge Plan Discharge Clinical Impression: Bronchitis Patient Disposition: Home, Self-Care Condition: Stable Instructions: Acute Bronchitis (ED) Additional Instructions: use the albuterol as needed for your wheezing and shortness of breath. Make sure to use the provided spacers. If symptoms continue to persist he can follow up with her primary care provider. Return to emergency department for new or worsening symptom. Prescriptions: No Action vit d PO .QD metformin 500 mg tablet extended release 24 hr 2,000 mg PO DAILY Qty: 360 3RF atorvastatin 40 mg tablet 40 mg PO HS Qty: 90 3RF aspirin 81 mg tablet,delayed release (DR/EC) 81 mg PO DAILY Follow Up/Referrals: Nilson Sorto MD [Primary Care Provider] - Stand Alone Forms: [employer] Info Instructions
--- OUTSIDE RECORDS SUMMARY | 2024-10-03 23:15 | XMS_ITS | Clinical Summary ---
Author Organization [employer] [facility] Address [address] [place] [id number] Care Team Providers Care Reading Recovery Teacher Name Role Phone Nilson Sorto MD Primary Care Provider [phone] Allergies No known active allergies Medications metformin HCl (METFORMIN ORAL) Take by mouth. Active aspirin (ASPIR-81 ORAL) Take by mouth. Active Social History Tobacco Use Types Packs/Day Years Used Date Smoking Tobacco: Never Assessed Interpersonal Safety Answer Date Record ed Are you being hit, kicked, p ushed or yelled at (see row info)? No 02/15/2024 Interpersonal Safety Abuse 12 - 18 Not on file 02/15/2024 Interpersonal Safety Ambulatory Vulnerability No t on file 02/15/2024 Sex and Gender Information Value Date Recorded Sex Assigned at Male 02/15/2024 10:36 AM CDT Legal Sex Male 10:28 AM CDT Gender Identity Male 02/15/2024 10:36 [...] CDT Plan of Treatment Not on file Insurance [facility] MEDICARE PART A HB ONLY MEDICARE PART A HB ONLY MEDICARE PART B HB ONLY [facility] [employer] [place] BLUE HB ONLY Care Teams Reading Recovery Teacher Relationship Specialty Start Date End Date Nilson Sorto MD [address] [place] [id number] PCP - General Family Practice 02/15/24
[2024-10-03] MEDS: ALBUTEROL SULFATE 2.5 MG/3 ML VIAL.NEB NEB (23:21)
[2024-10-04 00:05] VITALS: PULSE 83; RESP 20; O2SAT 97
== END 2024-10-04 00:43 | disposition home or self-care (01) ==
PROVIDERS: Emergency Provider Student in an Organized Health Care Education/Training Program; PCP Family Medicine
DX: J40 Bronchitis, not specified as acute or chronic (principal)
CPT/HCPCS: 71046; 87631; 94640; 99284

== ENCOUNTER 2025-06-14 07:25 | Outpatient (CLI) | payer MEDICARE, BC, SELFPAY | END 2025-06-14 07:26 | disposition home or self-care (01) | LOC: NFLDREF 06-19 16:54 | PROVIDERS: PCP Family Medicine; Referring Provider Family Medicine; Visit Provider Family Medicine | DX: E11.9 Type 2 diabetes mellitus without complications (principal) | CPT/HCPCS: 80053; 80061; 82043; 82570 ==